=== PATIENT | female | born 1985 | race Asian ===

== ENCOUNTER 2018-11-25 10:53 | Inpatient (IN) | payer OTHER ==
[~2018-11-25] VITALS: Ht 157.6 cm; Wt 94.5 kg
[2018-12-31] VITALS (19 sets, daily range): BP systolic 85–155; BP diastolic 39–89; PULSE 64–85; TEMP 97.9–98.6
[2018-12-31 10:16] LABS: BASO % 0.3 % (0.0-2.0); EOS # 0.1 (0.0-0.7); EOS % 1.4 % (0-4.0); GRAN # 5.5 (1.4-6.5); GRAN % 62.3 % (42.2-75.2); LYMPH # 2.4 (1.2-3.4); MEAN CELL VOLUME 74 fl (80.0-100.0); MEAN CORPUSCULAR HGB CONC 30 g/dl (33.0-37.0); MEAN PLATELET VOLUME 12.6 fl (7.4-10.4); MONO # 0.7 (0.1-0.6); MONO % 8.2 % (1.7-9.3); PLATELET COUNT 222 K/mm3 (130-400); RED BLOOD COUNT 4.29 M/mm3 (4.10-5.30); REDCELL DISTRIBUTION WIDTH-CV 15.7 % (11.5-14.5)
[2018-12-31 10:37] LABS: HEMATOCRIT 31.6 % (37.0-47.0); HEMOGLOBIN 9.6 g/dl (12.5-16.0); MEAN CORPUSCULAR HEMOGLOBIN 22 pg (27.0-31.0)
--- NOTE | 2018-12-31 18:00 | NUR ---
1800 PT AND FAMILY MOVED TO HALLWAY PER WHEELCHAIR DUE TO TORNADO WARNING UNTIL 1840 THEN RETURNED TO 210
--- NOTE | 2018-12-31 23:54 | NUR ---
ABDOMINAL BINDER APPLIED
[2019-01-01 03:41] VITALS: BP 104/63; PULSE 91; TEMP 97.9
[2019-01-01] MEDS ORDERED: MOTRIN 800800 MG/TAB PO (08:26)
[2019-01-01] MEDS ORDERED: PERCOCET 325 MG1 TA2 PO (08:26)
[2019-01-01 09:00] VITALS: BP 110/76; PULSE 85; TEMP 98.7
--- NOTE | 2019-01-01 11:01 | NUR ---
Initial visit; [facility] thanked patient for choosing [facility] and offered congratulations for the of her son. Mother graciously accepted.
[2019-01-01 16:00] VITALS: BP 111/72; PULSE 80; TEMP 98.1
[2019-01-01 21:05] VITALS: BP 98/49; PULSE 110; TEMP 98.2
[2019-01-02 08:38] VITALS: BP 100/64; PULSE 92; TEMP 98.1
--- NOTE | 2019-01-02 10:00 | NUR ---
PATIENT CALLS NURSE INTO ROOM SAYING SHE FEELS HOT, TEMP 99.5 ORALLY, PATIENT HAD ROOM TEMPERATURE ALL THE WAY UP AND WAS UNDER SEVERAL BLANKETS, TEMP IN ROOM TURNED DOWN, MOTRIN GIVEN FOR PAIN, WILL REASESS LATER. 1100 PATIENT SLEEPING. 1200 PATIENT AWAKE AND VISITING WITH , REPORTS FEELING MUCH BETTER.
--- NOTE | 2019-01-02 15:30 | NUR ---
1530 PATIENT SHOWERED, BANDAGE REMOVED, INCISION WNL, EDGES WELL APPROXIMATED, NO REDNESS OR DRAINAGE NOTED
[2019-01-02 17:30] VITALS: BP 112/60; PULSE 88; TEMP 98.8
--- NOTE | 2019-01-02 19:20 | NUR ---
1920 DISMISSED PER AMB TO HOME ACC BY AND FAMILY.
== END 2019-01-02 19:20 | disposition home or self-care (01) | DRG 788 ==
LOC: LDRO 12-31 06:56 → EDSTATUS 12-31 09:11 → OB 12-31 09:30 → LDRO 01-09 06:56
PROVIDERS: ADMIT Obstetrics & Gynecology
PROC: 10D00Z1 Extraction of Products of Conception, Low, Open Approach (ICD-10-PCS; principal; 2018-12-31)
DX: O34.211 Maternal care for low transverse scar from previous cesarean delivery (principal); Z3A.39 39 weeks gestation of pregnancy; Z37.0 Single live birth; N73.6 Female pelvic peritoneal adhesions (postinfective)
CPT/HCPCS: C1765; J0171; J0690; J1885; J2270; J2370; J2405; J2590; J3010; J7120

== ENCOUNTER 2019-07-07 18:16 | Emergency (ER) | payer OTHER ==
[~2019-07-07] VITALS: Ht 160 cm; Wt 86.4 kg
[~2019-07-07 18:16] MED LIST: MOTRIN 800800 MG/TAB PO; PERCOCET 325 MG1 TA2 PO
[2019-07-07 18:25] VITALS: BP 108/75; TEMP 98.6
[2019-07-07 19:43] LABS: BASO % 0.3 % (0.0-2.0); EOS % 0.3 % (0-4.0); HEMOGLOBIN 12.3 g/dl (12.5-16.0); LYMPH # 2.1 (1.2-3.4); LYMPH % 21.4 % (20.0-51.0); MEAN CELL VOLUME 74 fl (80.0-100.0); MEAN CORPUSCULAR HEMOGLOBIN 23 pg (27.0-31.0); MEAN CORPUSCULAR HGB CONC 32 g/dl (33.0-37.0); MEAN PLATELET VOLUME 11.2 fl (7.4-10.4); MONO # 0.4 (0.1-0.6); MONO % 4.6 % (1.7-9.3); PLATELET COUNT 342 K/mm3 (130-400); RED BLOOD COUNT 5.25 M/mm3 (4.10-5.30)
[2019-07-07 19:56] LABS: ALANINE AMINOTRANSFERASE 16 U/L (4-34); ALBUMIN 4.5 gm/dL (3.5-5.0); ALKALINE PHOSPHATASE 94 U/L (50-136); ANION GAP 8 mmol/L (7-16); AST,SGOT 23 U/L (15-37); BILIRUBIN,TOTAL 0.4 mg/dL (0.0-1.0); BLOOD UREA NITROGEN 11 mg/dL (7-17); CALCIUM 9.2 mg/dL (8.4-10.2); CARBON DIOXIDE 23 mmol/L (22-30); CHLORIDE 106 mmol/L (98-107); CREATININE, serum 0.55 (0.52-1.25); GLUCOSE 102 mg/dL (74-106); POTASSIUM 3.8 mmol/L (3.4-5.0); SODIUM 137 mmol/L (137-145); TOTAL PROTEIN 8.5 gm/dL (6.4-8.2)
[2019-07-07 19:59] LABS: C-REACTIVE PROTEIN < 0.5 mg/dL (0.0-0.9)
[2019-07-07 20:12] VITALS: PULSE 94
== END 2019-07-07 20:12 | disposition home or self-care (01) ==
LOC: COL.ER 18:16
PROVIDERS: Emergency Medicine
DX: R05 Cough (principal); R50.9 Fever, unspecified; F41.9 Anxiety disorder, unspecified